=== PATIENT | female | born 1995 | race Caucasian/White ===

== ENCOUNTER 2017-09-28 19:11 | Emergency (ER) | payer SELFPAY ==
[~2017-09-28] VITALS: Ht 160 cm; Wt 68.2 kg
[2017-09-28 21:02] LABS: INFLUENZA TYPE A POSITIVE FOR TYPE A (NEGATIVE); INFLUENZA TYPE B NEGATIVE FOR TYPE B (NEGATIVE)
[2017-09-28] MEDS ORDERED: ACETAMINOPHEN 500 MG TABLET PO ONE (21:45)
[2017-09-28] MEDS ORDERED: OSELTAMIVIR PHOSPHATE 75 MG CAPSULE PO ONE (21:45)
[2017-09-28 22:06] VITALS: BP 109/72
== END 2017-09-28 22:08 | disposition home or self-care (01) ==
LOC: EMS 19:12
DX: J11.1 Influenza due to unidentified influenza virus with other respiratory manifestations (principal)
CPT/HCPCS: 87804; 99284